=== PATIENT | male | born 2000 | race Hispanic/Latino ===

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

== ENCOUNTER 2022-03-24 06:45 | Inpatient (IN) | payer OTHER, MEDICAID ==
[~2022-03-24] VITALS: Ht 175.3 cm; Wt 47.6 kg
[~2022-03-24 06:45] MED LIST changes: +AZIT500T4 PO; +LEVO100T4 PO; -NAPR-1023 PO; +NIFE-39 PO
[2022-03-24] MEDS ORDERED: ALBUTEROL INHALER 90MCG/INH IH STA (07:14)
[2022-03-24] MEDS ORDERED: 0.9%NACL 1000ML 1,000 ML IV ONE (07:30)
[2022-03-24] MEDS ORDERED: DEXAMETHASONE SOD PHOSPHATE 4 MG/ML 1ML VIAL IVP ONE (07:30)
[2022-03-24 08:56] LABS: EOSINOPHILS % (AUTO) 1.2 % (0.0-8.0); HEMATOCRIT 41.4 % (42-54); LYMPHOCYTES % (AUTO) 32.3 % (21.0-51.0); MEAN CORPUSCULAR HEMOGLOBIN 30.5 pg (27.0-33.0); MEAN CORPUSCULAR HGB CONC 35.3 g/dL (32.0-36.0); MEAN CORPUSCULAR VOLUME 86.6 fL (80-100); MONOCYTES % (AUTO) 12.8 % (3.0-13.0); NEUTROPHILS % (AUTO) 53.1 % (40.0-77.0); PLATELET COUNT (AUTO) 179 K/uL (130-400); RED BLOOD CELL COUNT(AUTO) 4.78 MIL/uL (4.50-6.20); RED CELL DISTRIBUTION WIDTH 12.2 % (11.0-15.5); WHITE BLOOD COUNT (AUTO) 3.3 K/uL (4.8-10.8)
[2022-03-24 09:12] LABS: CREATININE 1.2 mg/dL (0.5-1.5); POTASSIUM 3.6 mmol/L (3.5-5.1)
[2022-03-24 09:17] LABS: ALBUMIN 3.4 g/dL (3.5-5.0); TOTAL PROTEIN, SERUM 7.4 g/dL (6.0-8.3)
[2022-03-24] MEDS ORDERED: AZITHROMYCIN 500MG+NS 250ML IVPB SCH (11:00)
[2022-03-24] MEDS ORDERED: IPRATROPIUM/ALBUTEROL SULFATE 3 ML SOLUTION IH PRN (11:00)
[2022-03-24 11:56] LABS: ABG BASE EXCESS -7.9 mmol/L (-2.0-3.0); ABG HCO3 15.9 mmol/L (21.0-28.0); ABG PCO2 29 mmHg (35-48)
[2022-03-24 12:09] LABS: ABG BASE EXCESS -6.4 mmol/L (-2.0-3.0); ABG PCO2 29 mmHg (35-48)
[2022-03-24] MEDS: IPRATROPIUM/ALBUTEROL SULFATE 3 ML SOLUTION IH SCH ×2 (12:20→17:15)
[2022-03-24] MEDS: AZITHROMYCIN 500MG+NS 250ML IVPB SCH (12:23)
[2022-03-24] MEDS ORDERED: ACETAMINOPHEN 325 MG TAB PO PRN (13:00)
[2022-03-24] MEDS ORDERED: PHARMACY COMMUNICATION MISC SCH ×2 (13:00→16:00)
[2022-03-24] MEDS ORDERED: ACETAMINOPHEN 650 MG SUPPOSITORY RC PRN (13:00)
[2022-03-24] MEDS ORDERED: IBUPROFEN 600 MG TABLET PO PRN (13:00)
[2022-03-24 13:34] LABS: THYROID STIMULATING HORMONE 0.37 uIU/mL (0.36-3.74)
[2022-03-24] MEDS: CEFTRIAXONE 1G VIAL IVP SCH (13:47)
[2022-03-24 14:32] LABS: CRP QUANTITATIVE 177.5 mg/L (0.00-9.0)
[2022-03-24] MEDS ORDERED: SOLU-MEDROL 40MG VIAL IVP SCH ×3 (16:00→21:00)
[2022-03-24] MEDS: BARICITINIB (EUA) 2 MG TABLET PO SCH (17:08)
[2022-03-24] MEDS: SOLU-MEDROL 125MG VIAL IVP SCH (17:12)
[2022-03-24] MEDS ORDERED: IOHEXOL 350 MG/ML 100ML INFUS..BTL IV ONE (19:23)
[2022-03-24 20:00] VITALS: BP 122/79
[2022-03-24] MEDS: NIFEDIPINE ER 30 MG TAB PO SCH (20:28)
[2022-03-24] MEDS ORDERED: NIFE-40 PO (21:57)
[2022-03-24 23:51] VITALS: BP 105/59
[2022-03-25] MEDS ORDERED: IPRATROPIUM/ALBUTEROL SULFATE 3 ML SOLUTION IH PRN (00:30)
[2022-03-25] MEDS: SOLU-MEDROL 125MG VIAL IVP SCH ×3 (01:04→16:53)
[2022-03-25] MEDS: IPRATROPIUM 0.5 MG/2.5 ML INH IH SCH ×5 (01:31→23:31)
[2022-03-25 03:46] VITALS: BP 115/69
[2022-03-25] MEDS: LEVOTHYROXINE 100 MCG TABLET PO SCH (05:43)
[2022-03-25 06:02] LABS: BASOPHILS % (AUTO) 0.8 % (0.0-5.0); HEMATOCRIT 39.2 % (42-54); LYMPHOCYTES % (AUTO) 9.5 % (21.0-51.0); MEAN CORPUSCULAR HEMOGLOBIN 30.7 pg (27.0-33.0); MEAN CORPUSCULAR HGB CONC 36.2 g/dL (32.0-36.0); MEAN CORPUSCULAR VOLUME 84.7 fL (80-100); MONOCYTES % (AUTO) 6.3 % (3.0-13.0); PLATELET COUNT (AUTO) 228 K/uL (130-400); RED BLOOD CELL COUNT(AUTO) 4.63 MIL/uL (4.50-6.20); RED CELL DISTRIBUTION WIDTH 12.5 % (11.0-15.5); WHITE BLOOD COUNT (AUTO) 8.5 K/uL (4.8-10.8)
[2022-03-25 06:27] LABS: ALBUMIN 3.6 g/dL (3.5-5.0); CREATININE 1.4 mg/dL (0.5-1.5); POTASSIUM 3.9 mmol/L (3.5-5.1); TOTAL PROTEIN, SERUM 8.3 g/dL (6.0-8.3)
[2022-03-25 07:00] LABS: CRP QUANTITATIVE 334.2 mg/L (0.00-9.0)
[2022-03-25 07:09] VITALS: BP 117/72
[2022-03-25] MEDS ORDERED: ENOXAPARIN SODIUM 40 MG/0.4 ML SYRINGE SQ SCH (09:00)
[2022-03-25] MEDS ORDERED: PANTOPRAZOLE 40 MG TAB DR PO SCH (09:00)
[2022-03-25] MEDS: BARICITINIB (EUA) 2 MG TABLET PO SCH (09:25)
[2022-03-25] MEDS: AZITHROMYCIN 500MG+NS 250ML IVPB SCH (11:41)
[2022-03-25 12:11] VITALS: BP 115/70
[2022-03-25] MEDS ORDERED: DIPHENOXYLATE HCL/ATROPINE 2.5/0.025 MG TAB PO PRN (14:00)
[2022-03-25 16:00] VITALS: BP 116/64
[2022-03-25] MEDS: GUAIFENESIN-CODEINE 5 ML SYRUP PO PRN (16:53)
[2022-03-25] MEDS: CEFTRIAXONE 1G VIAL IVP SCH (16:53)
[2022-03-25 20:00] VITALS: BP 106/60
[2022-03-25] MEDS: NIFEDIPINE ER 30 MG TAB PO SCH (21:27)
[2022-03-25 21:34] LABS: APPEARANCE,URINE SL CLOUDY (CLEAR); BILIRUBIN,URINE NEGATIVE (NEGATIVE); COLOR,URINE YELLOW (YELLOW); GLUCOSE, URINE (UA) NEGATIVE (NEGATIVE); KETONES,URINE 15 mg/dL (NEGATIVE); LEUKOCYTE ESTERASE ,URINE NEGATIVE (NEGATIVE); NITRATE,URINE NEGATIVE (NEGATIVE); OCCULT BLOOD,URINE SMALL (NEGATIVE); PROTEIN,URINE 100 mg/dL (NEGATIVE); UROBILINOGEN,URINE 0.2 mg/dL (0.2-1.0)
[2022-03-25 21:43] LABS: AMORPHOUS SEDIMENT,UR Moderate /LPF (None Seen); BACTERIA,URINE Few /HPF (None Seen); MUCUS,URINE Few LPF (None Seen); SQUAMOUS EPITHELIAL CELL,UR Few /HPF (0-2); WBC,URINE 0-1 /HPF (0-1)
[2022-03-26] MEDS: SOLU-MEDROL 125MG VIAL IVP SCH
[2022-03-26 00:33] VITALS: BP 110/69
[2022-03-26] MEDS: GUAIFENESIN-CODEINE 5 ML SYRUP PO PRN (01:35)
[2022-03-26 04:00] VITALS: BP 109/56
[2022-03-26 04:35] LABS: HEMATOCRIT 30.2 % (42-54); MEAN CORPUSCULAR HEMOGLOBIN 30.8 pg (27.0-33.0); MEAN CORPUSCULAR HGB CONC 36.4 g/dL (32.0-36.0); MEAN CORPUSCULAR VOLUME 84.6 fL (80-100); RED BLOOD CELL COUNT(AUTO) 3.57 MIL/uL (4.50-6.20); RED CELL DISTRIBUTION WIDTH 12.4 % (11.0-15.5); WHITE BLOOD COUNT (AUTO) 4.5 K/uL (4.8-10.8)
[2022-03-26] MEDS: IPRATROPIUM 0.5 MG/2.5 ML INH IH SCH (06:38)
[2022-03-26] MEDS: LEVOTHYROXINE 100 MCG TABLET PO SCH (06:42)
== END 2022-03-26 08:30 | disposition home or self-care (01) | DRG 177 ==
LOC: EDH 06:45 → EDHIP 10:40 → 4CH 20:02
PROVIDERS: ADMIT Internal Medicine; ATTEND Internal Medicine
DX: U07.1 COVID-19 (principal); J12.82 Pneumonia due to coronavirus disease 2019; J96.01 Acute respiratory failure with hypoxia; D84.9 Immunodeficiency, unspecified; I73.00 Raynaud's syndrome without gangrene; E03.9 Hypothyroidism, unspecified
CPT/HCPCS: 36415; 36600; 71045; 71275; 80048; 80053; 81001; 82728; 82803; 84145; 84443; 85025; 85027; 85378; 86140; 87635; 87804; 93005; 94640; 94664; C9803; G0378; J0456; J0696; J1100; J1650; J2930; J7030; Q9967

== ENCOUNTER 2022-05-23 20:19 | Emergency (ER) | payer OTHER, MEDICAID ==
[~2022-05-23] VITALS: Ht 175.3 cm; Wt 51.7 kg
[~2022-05-23 20:19] MED LIST changes: -NIFE-39 PO; +NIFE-40 PO
[2022-05-23] MEDS ORDERED: SULF1TAB42 PO (21:44)
[2022-05-23 21:49] VITALS: BP 107/63
[2022-05-23] MEDS ORDERED: SULFAMETHOX-TMP DS 800/160 TAB PO SCH (22:00)
== END 2022-05-23 21:51 | disposition home or self-care (01) ==
LOC: EDH 20:19
DX: L03.115 Cellulitis of right lower limb (principal); E03.9 Hypothyroidism, unspecified; Z79.899 Other long term (current) drug therapy
CPT/HCPCS: 73562

== ENCOUNTER 2023-10-06 07:14 | Emergency (ER) | payer OTHER, MEDICAID ==
[~2023-10-06] VITALS: Ht 175.3 cm; Wt 48.2 kg
[~2023-10-06 07:14] MED LIST changes: +SULF1TAB42 PO
[2023-10-06 07:59] LABS: HEMATOCRIT 35.8 % (42-54); MEAN CORPUSCULAR HEMOGLOBIN 31.3 pg (27.0-33.0); MEAN CORPUSCULAR HGB CONC 37.2 g/dL (32.0-36.0); MEAN CORPUSCULAR VOLUME 84.2 fL (80-100); PLATELET COUNT (AUTO) 237 K/uL (130-400); RED BLOOD CELL COUNT(AUTO) 4.25 MIL/uL (4.50-6.20); WHITE BLOOD COUNT (AUTO) 7.1 K/uL (4.8-10.8)
[2023-10-06 08:37] LABS: ALBUMIN 3.8 g/dL (3.5-5.0); BILIRUBIN,TOTAL 0.7 mg/dL (0.2-1.0); CREATININE 0.8 mg/dL (0.5-1.5); POTASSIUM 5.5 mmol/L (3.5-5.1); TOTAL PROTEIN, SERUM 7.3 g/dL (6.0-8.3)
[2023-10-06 09:59] VITALS: BP 109/60; PULSE 77; RESP 18; O2SAT 100
[2023-10-06] MEDS: DEXTROSE 50%-WATER 50 ML DISP.SYRIN IV ONE (10:00)
[2023-10-06] MEDS: INSULIN HUMULIN R 100 UNIT/ML 3ML IV ONE (10:04)
== END 2023-10-06 12:16 | disposition home or self-care (01) ==
LOC: EDH 07:14
DX: R07.89 Other chest pain (principal); E87.5 Hyperkalemia; E87.6 Hypokalemia; E03.9 Hypothyroidism, unspecified; Z79.899 Other long term (current) drug therapy
CPT/HCPCS: 99285; 96374; 71045; 96361; 84484 ×2; 80053; 85027; 36415; 93005; 84132; J7070